=== PATIENT | female | born 1935 | race Caucasian/White ===

== ENCOUNTER 2016-12-20 21:50 | Emergency (ER) | payer MEDICARE, MEDICAID, OTHER ==
[~2016-12-20] VITALS: Ht 152.4 cm; Wt 65.0 kg
[2016-12-21 08:49] VITALS: BP 157/96
== END 2016-12-21 08:57 | disposition home or self-care (01) ==
LOC: ER 21:50
DX: I10 Essential (primary) hypertension (principal); J44.9 Chronic obstructive pulmonary disease, unspecified; F03.90 Unspecified dementia, unspecified severity, without behavioral disturbance, psychotic disturbance, mood disturbance, and anxiety; F32.9 Major depressive disorder, single episode, unspecified
CPT/HCPCS: 99283

== ENCOUNTER 2019-10-12 02:48 | Inpatient (IN) | payer MEDICARE, MEDICAID ==
[~2019-10-12] VITALS: Ht 170.2 cm; Wt 71.2 kg
[2019-10-12] MEDS ORDERED: MORPHINE SULFATE 2 MG/ML CPJ (NOT FOR IM USE) IV ONE (03:30)
[2019-10-12 03:50] LABS: HEMATOCRIT. 38.6 % (36.0-48.0); HEMOGLOBIN. 12.8 g/dL (12.0-16.0); MEAN CORPUSCULAR HEMOGLOBIN 28.2 pg (28.0-32.0); MEAN CORPUSCULAR VOLUME 85.2 fL (81.0-99.0); MEAN PLATELET VOLUME 8.3 fl (7.4-10.4); PLATELET 187 x1000/uL (130-400); RED BLOOD CELL COUNT 4.53 mill/uL (4.2-5.4); RED CELL DISTRIBUTION WIDTH 14.4 % (11.6-14.6)
[2019-10-12 03:55] LABS: PLATELET ESTIMATE NORMAL
[2019-10-12 03:58] LABS: CHLORIDE 98 mEq/L (98-107)
[2019-10-12 04:18] LABS: D-DIMER 3.32 mg/L FEU (<0.50); INR 1.2; PROTHROMBIN TIME 12.8 sec (9.6-11.0)
[2019-10-12] MEDS: PIPERACILLIN/TAZ 3.375G PREMIX 50 ML IV NR ×2 (04:30→06:14)
[2019-10-12] MEDS ORDERED: DOCUSATE SODIUM 100MG CAPSULE PO PRN (05:45)
[2019-10-12] MEDS ORDERED: NITROGLYCERIN 0.4MG TABLET SL SL PRN (05:45)
[2019-10-12] MEDS ORDERED: ONDANSETRON HCL 4MG/2ML INJ IV PRN (05:45)
[2019-10-12] MEDS ORDERED: ACETAMINOPHEN 325MG TABLET PO PRN ×2 (05:45)
[2019-10-12] MEDS ORDERED: MAGNESIUM/ALUMINUM HYDROXIDE/SIMETHICONE 30ML UDC PO PRN (05:45)
[2019-10-12] MEDS ORDERED: TRAMADOL 50MG TABLET PO PRN (05:45)
[2019-10-12] MEDS ORDERED: AZITHROMYCIN 500 MG in DEXT 5% WATER 250 ML IV SCH (05:45)
[2019-10-12] MEDS ORDERED: GUAIFENESIN 200MG/10ML SUGAR FREE UDC PO PRN (05:45)
[2019-10-12] MEDS ORDERED: CLONIDINE 0.1MG TABLET PO PRN (05:45)
[2019-10-12 06:19] LABS: LDL CHOLESTEROL 99 mg/dL (5-100)
[2019-10-12 06:20] LABS: HDL CHOLESTEROL 42 mg/dL (40-59)
[2019-10-12 06:22] LABS: CREATINE KINASE MB FRACTION 16.8 ng/mL (0.5-3.6)
[2019-10-12 06:24] LABS: CLARITY URINE CLEAR (CLEAR); COLOR URINE YELLOW (YELLOW); KETONES URINE NEGATIVE (NEGATIVE); LEUKOCYTE ESTERASE URINE NEGATIVE (NEGATIVE); NITRITE URINE NEGATIVE (NEGATIVE); OCCULT BLOOD URINE 3+ (NEGATIVE); PROTEIN URINE 1+ (NEGATIVE); SPECIFIC GRAVITY URINE 1.016 (1.005-1.030); UROBILINOGEN URINE 0.2 E.U./dL (0.2-1.0)
[2019-10-12 06:32] LABS: CREATINE KINASE 2830 IU/L (26-192)
[2019-10-12] MEDS: AZITHROMYCIN 500 MG in DEXT 5% WATER 250 ML IV ONE ×2 (06:46→07:14)
[2019-10-12 08:00] VITALS: BP 119/46
[2019-10-12] MEDS ORDERED: VANCOMYCIN 1500MG in DEXTROSE 5% WATER 250ML IV SCH (08:00)
[2019-10-12 08:30] VITALS: BP 119/46
[2019-10-12] MEDS ORDERED: IPRATROPIUM/ALBUTEROL 0.5-3(2.5)MG/3ML NEB ORI PRN (08:30)
[2019-10-12 08:50] LABS: *AMPHETAMINES SCREEN URINE NEGATIVE (NEGATIVE); *BARBITURATES SCREEN URINE NEGATIVE (NEGATIVE); *BENZODIAZEPINES SCREEN URINE NEGATIVE (NEGATIVE); *COCAINE SCREEN URINE NEGATIVE (NEGATIVE); METHADONE URINE SCREEN NEGATIVE (NEGATIVE); OPIATES URINE SCREEN NEGATIVE (NEGATIVE)
[2019-10-12 08:51] LABS: CANNABINOID URINE SCREEN NEGATIVE (NEGATIVE); PHENCYCLIDINE URINE SCREEN NEGATIVE (NEGATIVE)
[2019-10-12] MEDS: GUAIFENESIN/DM 600MG/30MG ER TAB 12HR PO SCH ×2 (09:00→21:23)
[2019-10-12] MEDS ORDERED: IPRATROPIUM/ALBUTEROL 0.5-3(2.5)MG/3ML NEB HHN SCH (09:00)
[2019-10-12] MEDS: ENOXAPARIN 80MG/0.8ML SYR SUBCUT SCH ×2 (10:25→21:24)
[2019-10-12] MEDS: FUROSEMIDE 40MG/4ML VIAL IVP SCH ×2 (10:25→21:23)
[2019-10-12] MEDS: ASCORBIC ACID 500 MG TABLET PO SCH ×2 (10:26→21:23)
[2019-10-12] MEDS: ZINC SULFATE 220 MG ( 50 ) CAPSULE PO SCH (10:26)
[2019-10-12] MEDS: ASPIRIN 325MG EC TABLET PO SCH (10:26)
[2019-10-12 12:00] VITALS: BP 120/54
[2019-10-12] MEDS ORDERED: PIPERACILLIN/TAZOBACTAM 3.375 G in DEXT 5% WATER 100 ML IV SCH (13:00)
[2019-10-12] MEDS ORDERED: DEXTROSE 50% WATER 50ML SYRINGE IV PRN (15:30)
[2019-10-12 16:00] VITALS: BP 106/56
[2019-10-12 17:33] LABS: CREATINE KINASE MB FRACTION 11.9 ng/mL (0.5-3.6)
[2019-10-12 17:44] LABS: CREATINE KINASE 2220 IU/L (26-192)
[2019-10-12] MEDS: INSULIN LISPRO 100 UNITS/ML SUBCUT SCH ×2 (18:10→22:01)
[2019-10-12] MEDS: BLOOD SUGAR DIAGNOSTIC STRIP TEST SCH ×2 (18:37→21:50)
[2019-10-12 20:00] VITALS: BP 129/67
[2019-10-12] MEDS ORDERED: ZOLPIDEM TARTRATE 5MG TABLET PO PRN (21:00)
[2019-10-12] MEDS: PIPERACILLIN/TAZOBACTAM 3.375 G in DEXT 5% WATER 100 ML IV SCH (22:10)
[2019-10-13] VITALS: BP 104/62
[2019-10-13] MEDS: VANCOMYCIN 1 G PREMIX 200 ML IV SCH ×2 (02:53→20:42)
[2019-10-13 04:00] VITALS: BP 103/68
[2019-10-13] MEDS: PIPERACILLIN/TAZOBACTAM 3.375 G in DEXT 5% WATER 100 ML IV SCH ×3 (05:35→20:43)
[2019-10-13] MEDS: AZITHROMYCIN 250 MG in DEXT 5% WATER 250 ML IV SCH (06:18)
[2019-10-13] MEDS: BLOOD SUGAR DIAGNOSTIC STRIP TEST SCH ×4 (07:39→20:53)
[2019-10-13] MEDS: INSULIN LISPRO 100 UNITS/ML SUBCUT SCH ×4 (07:39→21:00)
[2019-10-13 08:00] VITALS: BP 138/66
[2019-10-13] MEDS: ENOXAPARIN 80MG/0.8ML SYR SUBCUT SCH (10:15)
[2019-10-13] MEDS: ASPIRIN 325MG EC TABLET PO SCH (10:16)
[2019-10-13] MEDS: ASCORBIC ACID 500 MG TABLET PO SCH ×2 (10:16→20:43)
[2019-10-13] MEDS: GUAIFENESIN/DM 600MG/30MG ER TAB 12HR PO SCH ×2 (10:16→20:43)
[2019-10-13] MEDS: ZINC SULFATE 220 MG ( 50 ) CAPSULE PO SCH (10:17)
[2019-10-13] MEDS: FUROSEMIDE 40MG/4ML VIAL IVP SCH ×2 (10:17→20:43)
[2019-10-13 20:00] VITALS: BP 131/71
[2019-10-14] VITALS: BP 138/63
[2019-10-14 04:00] VITALS: BP 114/55
[2019-10-14] MEDS: PIPERACILLIN/TAZOBACTAM 3.375 G in DEXT 5% WATER 100 ML IV SCH ×3 (04:06→20:58)
[2019-10-14] MEDS: AZITHROMYCIN 250 MG in DEXT 5% WATER 250 ML IV SCH (06:01)
[2019-10-14 07:03] LABS: CHLORIDE 95 mEq/L (98-107)
[2019-10-14] MEDS: BLOOD SUGAR DIAGNOSTIC STRIP TEST SCH ×4 (07:40→20:59)
[2019-10-14 08:00] VITALS: BP 116/61
[2019-10-14] MEDS: INSULIN LISPRO 100 UNITS/ML SUBCUT SCH ×4 (08:10→21:00)
[2019-10-14] MEDS: ASCORBIC ACID 500 MG TABLET PO SCH ×3 (09:00→20:58)
[2019-10-14] MEDS: ZINC SULFATE 220 MG ( 50 ) CAPSULE PO SCH ×2 (09:00→09:57)
[2019-10-14] MEDS: GUAIFENESIN/DM 600MG/30MG ER TAB 12HR PO SCH ×2 (09:00→20:58)
[2019-10-14] MEDS: FUROSEMIDE 40MG/4ML VIAL IVP SCH ×2 (09:57→20:58)
[2019-10-14] MEDS: ENOXAPARIN 40MG/0.4ML SYR SUBCUT SCH (09:57)
[2019-10-14 12:00] VITALS: BP 118/62
[2019-10-14 16:00] VITALS: BP 121/69
[2019-10-14] MEDS: VANCOMYCIN 750 MG PREMIX 150 ML IV SCH (17:12)
[2019-10-14 20:00] VITALS: BP 126/63
[2019-10-15 00:53] VITALS: BP 115/64
[2019-10-15 04:00] VITALS: BP 142/73
[2019-10-15] MEDS: PIPERACILLIN/TAZOBACTAM 3.375 G in DEXT 5% WATER 100 ML IV SCH ×3 (05:17→21:49)
[2019-10-15] MEDS: BLOOD SUGAR DIAGNOSTIC STRIP TEST SCH ×4 (06:34→21:00)
[2019-10-15] MEDS: AZITHROMYCIN 250 MG in DEXT 5% WATER 250 ML IV SCH (06:37)
[2019-10-15] MEDS: INSULIN LISPRO 100 UNITS/ML SUBCUT SCH ×4 (07:49→21:00)
[2019-10-15 08:00] VITALS: BP 141/76
[2019-10-15] MEDS: ASCORBIC ACID 500 MG TABLET PO SCH ×4 (08:50→21:49)
[2019-10-15] MEDS: ZINC SULFATE 220 MG ( 50 ) CAPSULE PO SCH ×2 (08:50→09:00)
[2019-10-15] MEDS: GUAIFENESIN/DM 600MG/30MG ER TAB 12HR PO SCH ×4 (08:50→21:49)
[2019-10-15] MEDS: FUROSEMIDE 40MG/4ML VIAL IVP SCH ×2 (08:51→21:49)
[2019-10-15] MEDS: ENOXAPARIN 40MG/0.4ML SYR SUBCUT SCH (08:51)
[2019-10-15] MEDS: VANCOMYCIN 750 MG PREMIX 150 ML IV SCH (11:51)
[2019-10-15 12:00] VITALS: BP 150/76
[2019-10-15 16:00] VITALS: BP 111/61
[2019-10-15 20:51] VITALS: BP 145/70
[2019-10-16 00:33] VITALS: BP 126/68
[2019-10-16 04:00] VITALS: BP 130/79
[2019-10-16] MEDS: PIPERACILLIN/TAZOBACTAM 3.375 G in DEXT 5% WATER 100 ML IV SCH ×3 (04:53→21:49)
[2019-10-16] MEDS: VANCOMYCIN 750 MG PREMIX 150 ML IV SCH ×2 (06:03→23:19)
[2019-10-16] MEDS: BLOOD SUGAR DIAGNOSTIC STRIP TEST SCH ×4 (06:13→21:50)
[2019-10-16] MEDS: AZITHROMYCIN 250 MG in DEXT 5% WATER 250 ML IV SCH (06:57)
[2019-10-16 08:00] VITALS: BP 147/76
[2019-10-16] MEDS: INSULIN LISPRO 100 UNITS/ML SUBCUT SCH ×4 (08:10→21:00)
[2019-10-16] MEDS: GUAIFENESIN/DM 600MG/30MG ER TAB 12HR PO SCH ×2 (09:00→21:00)
[2019-10-16] MEDS: ZINC SULFATE 220 MG ( 50 ) CAPSULE PO SCH (09:00)
[2019-10-16] MEDS: ASCORBIC ACID 500 MG TABLET PO SCH ×2 (09:00→21:00)
[2019-10-16] MEDS: FUROSEMIDE 40MG/4ML VIAL IVP SCH ×2 (09:39→21:49)
[2019-10-16] MEDS: ENOXAPARIN 40MG/0.4ML SYR SUBCUT SCH (09:40)
[2019-10-16 12:00] VITALS: BP 136/73
[2019-10-16] MEDS ORDERED: LORAZEPAM 2MG/ML CPJ IV PRN (13:45)
[2019-10-16] MEDS ORDERED: MORPHINE SULFATE 2 MG/ML CPJ (NOT FOR IM USE) IV PRN (13:45)
[2019-10-16 16:00] VITALS: BP 124/72
[2019-10-16 20:00] VITALS: BP 120/63
[2019-10-16 20:54] LABS: COVID-19 PCR RNA NOT DETECTED
[2019-10-16 20:55] LABS: COVID-19 PCR RNA NOT DETECTED
[2019-10-17] VITALS: BP 124/64
[2019-10-17 04:00] VITALS: BP 142/76
[2019-10-17] MEDS: PIPERACILLIN/TAZOBACTAM 3.375 G in DEXT 5% WATER 100 ML IV SCH ×3 (04:18→21:12)
[2019-10-17 08:00] VITALS: BP 125/63
[2019-10-17] MEDS: BLOOD SUGAR DIAGNOSTIC STRIP TEST SCH ×4 (08:25→21:02)
[2019-10-17] MEDS: INSULIN LISPRO 100 UNITS/ML SUBCUT SCH ×4 (08:27→21:00)
[2019-10-17] MEDS: ASCORBIC ACID 500 MG TABLET PO SCH ×2 (09:00→21:00)
[2019-10-17] MEDS: GUAIFENESIN/DM 600MG/30MG ER TAB 12HR PO SCH ×2 (09:00→21:00)
[2019-10-17] MEDS: ZINC SULFATE 220 MG ( 50 ) CAPSULE PO SCH (09:00)
[2019-10-17] MEDS: ENOXAPARIN 40MG/0.4ML SYR SUBCUT SCH (09:54)
[2019-10-17] MEDS: FUROSEMIDE 40MG/4ML VIAL IVP SCH ×2 (09:54→21:13)
[2019-10-17 12:00] VITALS: BP 117/65
[2019-10-17 14:09] LABS: BG BASE EXCESS 11.6 mmol/L (-2.0-2.0); BG CARBOXYHEMOGLOBIN 0.3 % (0.5-1.5); BG DEOXYHEMOGLOBIN 1.1 % (0.0-5.0); BG METHEMOGLOBIN 0.2 % (0.0-1.5); BG OXYGEN SATURATION 98.9 % (92.0-98.5); BG OXYHEMOGLOBIN 98.4 % (94.0-97.0); BG PCO2 52.3 mmHg (35.0-45.0); BG PH 7.467 (7.350-7.450); BG PO2 178.1 mmHg (75.0-100.0); BG SAMPLE SITE RIGHT RADIAL; BG TOTAL HEMOGLOBIN 11.4 g/dL (12.0-18.0); BG VENT MODE MASK - NRB
[2019-10-17 16:00] VITALS: BP 135/81
[2019-10-17 20:00] VITALS: BP 126/75
[2019-10-17] MEDS: IPRATROPIUM/ALBUTEROL 0.5-3(2.5)MG/3ML NEB HHN SCH (21:20)
[2019-10-18] VITALS: BP 137/77
[2019-10-18] MEDS: IPRATROPIUM/ALBUTEROL 0.5-3(2.5)MG/3ML NEB HHN SCH ×4 (02:17→20:25)
[2019-10-18 04:00] VITALS: BP 135/76
[2019-10-18] MEDS: BLOOD SUGAR DIAGNOSTIC STRIP TEST SCH ×4 (06:34→21:09)
[2019-10-18] MEDS: VANCOMYCIN 750 MG PREMIX 150 ML IV SCH (06:35)
[2019-10-18] MEDS: INSULIN LISPRO 100 UNITS/ML SUBCUT SCH ×4 (06:35→21:09)
[2019-10-18 07:35] LABS: HEMATOCRIT. 31.8 % (36.0-48.0); HEMOGLOBIN. 10.6 g/dL (12.0-16.0); MEAN CORPUSCULAR HEMOGLOBIN 28.2 pg (28.0-32.0); MEAN CORPUSCULAR VOLUME 84.1 fL (81.0-99.0); PLATELET 218 x1000/uL (130-400); RED BLOOD CELL COUNT 3.78 mill/uL (4.2-5.4); RED CELL DISTRIBUTION WIDTH 14.8 % (11.6-14.6)
[2019-10-18 07:59] LABS: CHLORIDE 91 mEq/L (98-107)
[2019-10-18 08:00] VITALS: BP 128/67
[2019-10-18 08:33] LABS: CREATINE KINASE 2768 IU/L (26-192)
[2019-10-18] MEDS: FUROSEMIDE 40MG/4ML VIAL IVP SCH ×2 (08:51→21:09)
[2019-10-18] MEDS: ZINC SULFATE 220 MG ( 50 ) CAPSULE PO SCH (08:51)
[2019-10-18] MEDS: GUAIFENESIN/DM 600MG/30MG ER TAB 12HR PO SCH ×2 (08:51→21:09)
[2019-10-18] MEDS: ASCORBIC ACID 500 MG TABLET PO SCH ×2 (08:51→21:09)
[2019-10-18] MEDS: ENOXAPARIN 40MG/0.4ML SYR SUBCUT SCH (08:52)
[2019-10-18] MEDS: POTASSIUM CHLORIDE INJ 40 MEQ in DEXT 5% WATER 250 ML IV SCH ×2 (11:18→16:00)
[2019-10-18 12:00] VITALS: BP 128/67
[2019-10-18 13:44] LABS: PLATELET ESTIMATE NORMAL
[2019-10-18 16:00] VITALS: BP 127/58
[2019-10-18 20:00] VITALS: BP 163/73
[2019-10-19] VITALS (7 sets, daily range): BP systolic 115–163; BP diastolic 58–85
[2019-10-19] MEDS: IPRATROPIUM/ALBUTEROL 0.5-3(2.5)MG/3ML NEB HHN SCH ×3 (02:07→21:47)
[2019-10-19] MEDS: BLOOD SUGAR DIAGNOSTIC STRIP TEST SCH ×4 (05:26→21:00)
[2019-10-19] MEDS: INSULIN LISPRO 100 UNITS/ML SUBCUT SCH ×4 (05:29→21:00)
[2019-10-19] MEDS: VANCOMYCIN 750 MG PREMIX 150 ML IV SCH (06:08)
[2019-10-19 06:26] LABS: HEMATOCRIT. 32.6 % (36.0-48.0); HEMOGLOBIN. 10.7 g/dL (12.0-16.0); MEAN CORPUSCULAR VOLUME 85.1 fL (81.0-99.0); MEAN PLATELET VOLUME 8.2 fl (7.4-10.4); PLATELET 255 x1000/uL (130-400); RED BLOOD CELL COUNT 3.83 mill/uL (4.2-5.4); RED CELL DISTRIBUTION WIDTH 15.1 % (11.6-14.6)
[2019-10-19 06:48] LABS: CHLORIDE 95 mEq/L (98-107)
[2019-10-19] MEDS: FUROSEMIDE 40MG/4ML VIAL IVP SCH ×2 (09:12→21:49)
[2019-10-19] MEDS: GUAIFENESIN/DM 600MG/30MG ER TAB 12HR PO SCH ×2 (09:12→21:49)
[2019-10-19] MEDS: ASCORBIC ACID 500 MG TABLET PO SCH ×2 (09:12→21:49)
[2019-10-19] MEDS: ZINC SULFATE 220 MG ( 50 ) CAPSULE PO SCH (09:12)
[2019-10-19] MEDS: ENOXAPARIN 40MG/0.4ML SYR SUBCUT SCH (09:15)
[2019-10-19] MEDS ORDERED: KCL 20MEQ/100ML PREMIX 100 ML IV SCH (10:00)
[2019-10-19 11:06] LABS: PLATELET ESTIMATE NORMAL
[2019-10-20] VITALS: BP 120/67
[2019-10-20] MEDS: IPRATROPIUM/ALBUTEROL 0.5-3(2.5)MG/3ML NEB HHN SCH ×4 (01:56→21:51)
[2019-10-20 04:00] VITALS: BP 152/72
[2019-10-20] MEDS: BLOOD SUGAR DIAGNOSTIC STRIP TEST SCH ×4 (05:56→21:00)
[2019-10-20] MEDS: INSULIN LISPRO 100 UNITS/ML SUBCUT SCH ×4 (05:57→21:42)
[2019-10-20] MEDS: VANCOMYCIN 750 MG PREMIX 150 ML IV SCH (06:00)
[2019-10-20 08:00] VITALS: BP 146/87
[2019-10-20] MEDS: GUAIFENESIN/DM 600MG/30MG ER TAB 12HR PO SCH ×2 (09:00→20:32)
[2019-10-20] MEDS: ZINC SULFATE 220 MG ( 50 ) CAPSULE PO SCH (09:00)
[2019-10-20] MEDS: ASCORBIC ACID 500 MG TABLET PO SCH ×2 (09:00→20:32)
[2019-10-20] MEDS: FUROSEMIDE 40MG/4ML VIAL IVP SCH ×2 (09:05→21:38)
[2019-10-20] MEDS: ENOXAPARIN 40MG/0.4ML SYR SUBCUT SCH (09:05)
[2019-10-20] MEDS: DEXT 5%/0.9% NACL 1,000 ML IV SCH ×2 (10:07→22:22)
[2019-10-20 20:00] VITALS: BP 157/85
[2019-10-21] VITALS: BP 145/70
[2019-10-21] MEDS: IPRATROPIUM/ALBUTEROL 0.5-3(2.5)MG/3ML NEB HHN SCH ×3 (01:33→15:02)
[2019-10-21] MEDS: INSULIN LISPRO 100 UNITS/ML SUBCUT SCH ×4 (06:43→21:00)
[2019-10-21] MEDS: BLOOD SUGAR DIAGNOSTIC STRIP TEST SCH ×4 (06:43→21:00)
[2019-10-21] MEDS: VANCOMYCIN 750 MG PREMIX 150 ML IV SCH (06:44)
[2019-10-21 08:00] VITALS: BP 158/84
[2019-10-21] MEDS: ASCORBIC ACID 500 MG TABLET PO SCH ×2 (09:00→21:00)
[2019-10-21] MEDS: ZINC SULFATE 220 MG ( 50 ) CAPSULE PO SCH (09:00)
[2019-10-21] MEDS: GUAIFENESIN/DM 600MG/30MG ER TAB 12HR PO SCH ×2 (09:00→21:00)
[2019-10-21] MEDS: FUROSEMIDE 40MG/4ML VIAL IVP SCH ×2 (09:13→22:45)
[2019-10-21] MEDS: ENOXAPARIN 40MG/0.4ML SYR SUBCUT SCH (09:13)
[2019-10-21 12:00] VITALS: BP 142/78
[2019-10-21] MEDS: DEXT 5%/0.9% NACL 1,000 ML IV SCH (12:32)
[2019-10-21 16:00] VITALS: BP 129/66
[2019-10-21 16:16] LABS: BG BASE EXCESS 8.2 mmol/L (-2.0-2.0); BG CARBOXYHEMOGLOBIN 0.3 % (0.5-1.5); BG DEOXYHEMOGLOBIN 5.9 % (0.0-5.0); BG FRACTION INSPIRED OXYGEN 55; BG HCO3 ACT 33.6 mmol/L (22.0-26.0); BG METHEMOGLOBIN 0.3 % (0.0-1.5); BG OXYGEN SATURATION 94.1 % (92.0-98.5); BG OXYHEMOGLOBIN 93.5 % (94.0-97.0); BG PCO2 51.2 mmHg (35.0-45.0); BG PH 7.435 (7.350-7.450); BG PO2 71.3 mmHg (75.0-100.0); BG SAMPLE SITE RIGHT RADIAL; BG TOTAL HEMOGLOBIN 10.8 g/dL (12.0-18.0); BG VENT MODE MASK - VENTI
[2019-10-21] MEDS: PIPERACILLIN/TAZOBACTAM 3.375 G in DEXT 5% WATER 100 ML IV SCH (17:42)
[2019-10-21 20:00] VITALS: BP 115/60
[2019-10-22] VITALS: BP 129/87
[2019-10-22 04:00] VITALS: BP 125/72
[2019-10-22] MEDS: PIPERACILLIN/TAZOBACTAM 3.375 G in DEXT 5% WATER 100 ML IV SCH ×3 (05:03→18:11)
[2019-10-22] MEDS: DEXT 5%/0.9% NACL 1,000 ML IV SCH ×2 (05:03→21:02)
[2019-10-22] MEDS: BLOOD SUGAR DIAGNOSTIC STRIP TEST SCH ×4 (06:45→21:00)
[2019-10-22 08:00] VITALS: BP 134/77
[2019-10-22] MEDS: IPRATROPIUM/ALBUTEROL 0.5-3(2.5)MG/3ML NEB HHN SCH ×3 (08:39→20:10)
[2019-10-22] MEDS: FUROSEMIDE 40MG/4ML VIAL IVP SCH ×2 (09:04→21:02)
[2019-10-22] MEDS: GUAIFENESIN/DM 600MG/30MG ER TAB 12HR PO SCH ×2 (09:05→21:00)
[2019-10-22] MEDS: ENOXAPARIN 40MG/0.4ML SYR SUBCUT SCH (09:05)
[2019-10-22] MEDS: ZINC SULFATE 220 MG ( 50 ) CAPSULE PO SCH (09:05)
[2019-10-22] MEDS: ASCORBIC ACID 500 MG TABLET PO SCH ×2 (09:05→21:00)
[2019-10-22] MEDS: INSULIN LISPRO 100 UNITS/ML SUBCUT SCH ×3 (12:15→21:00)
[2019-10-22 12:23] VITALS: BP 131/68
[2019-10-22 16:00] VITALS: BP 115/60
[2019-10-22 20:00] VITALS: BP 110/53
[2019-10-23] VITALS: BP 115/73
[2019-10-23] MEDS: PIPERACILLIN/TAZOBACTAM 3.375 G in DEXT 5% WATER 100 ML IV SCH ×5 (00:31→23:30)
[2019-10-23] MEDS: IPRATROPIUM/ALBUTEROL 0.5-3(2.5)MG/3ML NEB HHN SCH ×4 (03:06→21:37)
[2019-10-23 04:00] VITALS: BP 141/74
[2019-10-23] MEDS: BLOOD SUGAR DIAGNOSTIC STRIP TEST SCH ×4 (06:45→20:56)
[2019-10-23] MEDS: INSULIN LISPRO 100 UNITS/ML SUBCUT SCH ×4 (07:15→20:56)
[2019-10-23 07:54] LABS: HEMATOCRIT. 29.3 % (36.0-48.0); HEMOGLOBIN. 9.5 g/dL (12.0-16.0); MEAN CORPUSCULAR HEMOGLOBIN 27.8 pg (28.0-32.0); MEAN CORPUSCULAR VOLUME 86.3 fL (81.0-99.0); MEAN PLATELET VOLUME 8.3 fl (7.4-10.4); PLATELET 305 x1000/uL (130-400); RED CELL DISTRIBUTION WIDTH 15.4 % (11.6-14.6)
[2019-10-23 08:00] VITALS: BP 124/61
[2019-10-23] MEDS: GUAIFENESIN/DM 600MG/30MG ER TAB 12HR PO SCH ×2 (10:15→20:56)
[2019-10-23] MEDS: ASCORBIC ACID 500 MG TABLET PO SCH ×2 (10:15→20:56)
[2019-10-23] MEDS: ZINC SULFATE 220 MG ( 50 ) CAPSULE PO SCH (10:16)
[2019-10-23] MEDS: FUROSEMIDE 40MG/4ML VIAL IVP SCH ×2 (10:16→20:54)
[2019-10-23] MEDS: ENOXAPARIN 40MG/0.4ML SYR SUBCUT SCH (10:18)
[2019-10-23] MEDS: POTASSIUM CHLORIDE INJ 40 MEQ in DEXTROSE 5% WATER 1,000 ML IV SCH (11:15)
[2019-10-23 12:00] VITALS: BP 124/62
[2019-10-23 12:29] LABS: PLATELET ESTIMATE NORMAL
[2019-10-23 16:15] VITALS: BP 112/60
[2019-10-23 20:00] VITALS: BP 148/70
[2019-10-24] VITALS: BP 138/78
[2019-10-24] MEDS: IPRATROPIUM/ALBUTEROL 0.5-3(2.5)MG/3ML NEB HHN SCH ×4 (01:41→20:28)
[2019-10-24 04:00] VITALS: BP 157/78
[2019-10-24] MEDS: PIPERACILLIN/TAZOBACTAM 3.375 G in DEXT 5% WATER 100 ML IV SCH ×4 (06:37→23:55)
[2019-10-24] MEDS: INSULIN LISPRO 100 UNITS/ML SUBCUT SCH ×4 (06:37→21:00)
[2019-10-24] MEDS: BLOOD SUGAR DIAGNOSTIC STRIP TEST SCH ×4 (06:37→21:20)
[2019-10-24 08:00] VITALS: BP 120/72
[2019-10-24] MEDS: ZINC SULFATE 220 MG ( 50 ) CAPSULE PO SCH (08:52)
[2019-10-24] MEDS: FUROSEMIDE 40MG/4ML VIAL IVP SCH ×2 (08:52→21:25)
[2019-10-24] MEDS: ASCORBIC ACID 500 MG TABLET PO SCH ×2 (08:52→21:00)
[2019-10-24] MEDS: ENOXAPARIN 40MG/0.4ML SYR SUBCUT SCH (08:53)
[2019-10-24] MEDS: GUAIFENESIN/DM 600MG/30MG ER TAB 12HR PO SCH ×2 (09:25→21:00)
[2019-10-24 12:00] VITALS: BP 154/76
[2019-10-24] MEDS: POTASSIUM CHLORIDE INJ 40 MEQ in DEXTROSE 5% WATER 1,000 ML IV SCH ×2 (15:12→17:45)
[2019-10-24 16:00] VITALS: BP 145/76
[2019-10-24 20:00] VITALS: BP 140/70
[2019-10-25] VITALS: BP 146/77
[2019-10-25] MEDS: IPRATROPIUM/ALBUTEROL 0.5-3(2.5)MG/3ML NEB HHN SCH ×3 (01:38→14:24)
[2019-10-25 04:00] VITALS: BP 143/71
[2019-10-25] MEDS: INSULIN LISPRO 100 UNITS/ML SUBCUT SCH ×3 (05:58→17:15)
[2019-10-25] MEDS: BLOOD SUGAR DIAGNOSTIC STRIP TEST SCH ×3 (05:58→16:45)
[2019-10-25] MEDS: PIPERACILLIN/TAZOBACTAM 3.375 G in DEXT 5% WATER 100 ML IV SCH ×2 (06:01→13:21)
[2019-10-25 08:00] VITALS: BP 142/65
[2019-10-25] MEDS: GUAIFENESIN/DM 600MG/30MG ER TAB 12HR PO SCH (09:00)
[2019-10-25] MEDS: ASCORBIC ACID 500 MG TABLET PO SCH (09:00)
[2019-10-25] MEDS: ZINC SULFATE 220 MG ( 50 ) CAPSULE PO SCH (09:00)
[2019-10-25] MEDS: FUROSEMIDE 40MG/4ML VIAL IVP SCH (11:04)
[2019-10-25] MEDS: ENOXAPARIN 40MG/0.4ML SYR SUBCUT SCH (11:04)
[2019-10-25 12:00] VITALS: BP 133/69
[2019-10-25] MEDS: POTASSIUM CHLORIDE INJ 40 MEQ in DEXTROSE 5% WATER 1,000 ML IV SCH (13:21)
[2019-10-25] MEDS: POTASSIUM CHLORIDE INJ 40 MEQ in DEXT 5% WATER 250 ML IV SCH ×2 (14:40→18:00)
[2019-10-25 16:00] VITALS: BP 116/62
[2019-10-25 18:41] VITALS: BP 116/62
[2019-10-26] MEDS ORDERED: ENOXAPARIN 30MG/0.3ML SYR SUBCUT SCH (09:00)
== END 2019-10-25 20:20 | DRG 871 ==
LOC: ER 02:48 → 7WST 05:26 → EDBEDREQTM 05:29 → EDBEDREQ 05:29 → ENRESERV 07:33 → 5WST 10-16 23:18
PROVIDERS: ADMIT Internal Medicine; ATTEND Internal Medicine
DX: A41.89 Other specified sepsis (principal); J96.01 Acute respiratory failure with hypoxia; E43 Unspecified severe protein-calorie malnutrition; G92 Toxic encephalopathy; J18.9 Pneumonia, unspecified organism; J44.0 Chronic obstructive pulmonary disease with (acute) lower respiratory infection; E87.1 Hypo-osmolality and hyponatremia; Y95 Nosocomial condition; Z66 Do not resuscitate; R65.20 Severe sepsis without septic shock; E83.51 Hypocalcemia; E11.9 Type 2 diabetes mellitus without complications; B34.9 Viral infection, unspecified; F03.90 Unspecified dementia, unspecified severity, without behavioral disturbance, psychotic disturbance, mood disturbance, and anxiety; I10 Essential (primary) hypertension; R04.0 Epistaxis; I99.8 Other disorder of circulatory system; E87.6 Hypokalemia; Z20.828 Contact with and (suspected) exposure to other viral communicable diseases; F20.9 Schizophrenia, unspecified; F31.9 Bipolar disorder, unspecified; I70.202 Unspecified atherosclerosis of native arteries of extremities, left leg; Z79.4 Long term (current) use of insulin; Z88.8 Allergy status to other drugs, medicaments and biological substances; Z68.24 Body mass index [BMI] 24.0-24.9, adult
CPT/HCPCS: 36415; 36600; 71045; 80048; 80053; 80061; 80076; 80202; 80305; 81003; 82375; 82550; 82553; 82728; 82805; 82962; 83036; 83605; 83735; 83880; 84100; 84145; 84484; 85025; 85379; 86140; 92610; 93005; 94640; 99291; J0456; J1650; J1815; J1940; J2270; J2543; J3370; J3480; J7042; J7060; J7070